=== PATIENT | male | born 1985 | race Caucasian/White ===

== ENCOUNTER → 2016-11-29 | Outpatient (CLI) | payer BC, OTHER ==
--- NOTE | ~2016-11-29 | CR150 ---
[facility] A Service of [facility] RADIOLOGY TEXT RESULTS PATIENT: ZAKIYA JOYCE LOCATION: [facility] : 87 UNIT #: [id number] AGE: [address]: Inna Helms MD SEX: M ORDER DR: [id number] [facility] [address] [place], [place] [address] [id number] O MR#: [id number] Acc #: [id number] NAME: ZAKIYA JOYCE : 1985 SEX: M STUDY DATE/TIME: 11/29/2016 16:32 UNIT: [facility] ROOM: STUDY DESCRIPTION: CR Hip Min 2 Views Lt Attending Physician: Inna Helms M.D. Referring Physician: Inna Helms M.D. Ordering Physician: Inna Helms M.D. Primary Care Physician: Inna Helms M.D. MEDICAL IMAGING REPORT This report is preliminary unless electronic signature is present EXAM Two views of the left hip. INDICATION Left hip and back pain with activity started a month ago. Patient has a history of prior left hip surgery. 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 No obvious evidence of hardware loosening or failure is seen. Right hip appears unremarkable. There is really no significant degenerative change on either side. Sacroiliac joints appear well preserved. No aggressive osseous abnormality is seen. IMPRESSION Postoperative changes as noted above. No acute findings. Dictated by... Jazz Saenz M.D. THIS IS AN ELECTRONICALLY VERIFIED REPORT Jazz Saenz M.D. at 11/30/2016 4:42 PM AFF/tmw TD: 11/30/2016 10:56 JOB #: [id number] MEDICAL IMAGING REPORT Page 1 of 1 COPY
--- NOTE | ~2016-11-29 | CR184 ---
[facility] A Service of [facility] RADIOLOGY TEXT RESULTS PATIENT: ZAKIYA JOYCE LOCATION: [facility] : 87 UNIT #: [id number] AGE: [address]: Inna Helms MD SEX: M ORDER DR: [id number] [facility] [address] [place], [place] [address] [id number] O MR#: [id number] Acc #: [id number] NAME: ZAKIYA JOYCE : 1985 SEX: M STUDY DATE/TIME: 11/29/2016 16:32 UNIT: [facility] ROOM: STUDY DESCRIPTION: CR Lumbar Spine Min 4 Views Attending Physician: Inna Helms M.D. Referring Physician: Inna Helms M.D. Ordering Physician: Inna Helms M.D. Primary Care Physician: Inna Helms M.D. MEDICAL IMAGING REPORT This report is preliminary unless electronic signature is present EXAM Lumbar spine 5 views 11/29/2016 HISTORY Low back pain for 1 month with left hip pain. No known injury. FINDINGS AP and lateral projections of the lumbar segment show good mineralization of both anterior and posterior elements. They are all anatomically normal without indication of fracture, dislocation, or malignant change of a sclerotic or lytic type. There is no congenital defect noted. The sacroiliac joints are normal. IMPRESSION Normal lumbar spine. Dictated by... Lizandro Castillo M.D. THIS IS AN ELECTRONICALLY VERIFIED REPORT Lizandro Castillo M.D. at 11/30/2016 7:32 AM DICK/chandni TD: 11/30/2016 06:22 JOB #: [id number] MEDICAL IMAGING REPORT Page 1 of 1 COPY
--- NOTE | ~2016-11-29 | CR63 ---
[facility] A Service of [facility] RADIOLOGY TEXT RESULTS PATIENT: ZAKIYA JOYCE LOCATION: [facility] : 87 UNIT #: [id number] AGE: [address]: Inna Helms MD SEX: M ORDER DR: [id number] [facility] [address]. [place], [place] [address] [id number] O MR#: [id number] Acc #: [id number] NAME: ZAKIYA JOYCE : 1985 SEX: M STUDY DATE/TIME: 11/29/2016 16:31 UNIT: [facility] ROOM: STUDY DESCRIPTION: CR Chest 2 View Attending Physician: Inna Helms M.D. Referring Physician: Inna Helms M.D. Ordering Physician: Inna Helms M.D. Primary Care Physician: Inna Helms M.D. MEDICAL IMAGING REPORT This report is preliminary unless electronic signature is present EXAM Chest PA and lateral 11/29/2016 HISTORY Shortness of breath on exertion for 1 month. Smoking history. FINDINGS PA and lateral examination of the chest upright shows a good expansion of the parenchyma with a normal distribution of the pulmonary vascularity. There is no indication of congestion, effusion, infiltrate, tumor, or nodular density. The pleural reflections and diaphragmatic contours are normal. The cardiac silhouette and mediastinal anatomy is within normal limits. IMPRESSION Normal chest. Dictated by... Lizandro Castillo M.D. THIS IS AN ELECTRONICALLY VERIFIED REPORT Lizandro Castillo M.D. at 11/30/2016 7:33 AM DICK/chandni TD: 11/30/2016 06:19 JOB #: [id number] MEDICAL IMAGING REPORT Page 1 of 1 COPY
== END | disposition home or self-care (01) ==
LOC: CRAD 15:46
DX: R06.02 Shortness of breath (principal); M54.16 Radiculopathy, lumbar region; M25.552 Pain in left hip; Z98.890 Other specified postprocedural states
CPT/HCPCS: 71020; 72110; 73502